=== PATIENT | male | born 1970 | race Caucasian/White ===

== ENCOUNTER 2017-08-23 19:32 | Emergency (ER) | payer OTHER ==
[2017-08-23] MEDS ORDERED: Tetan/Diph/Pertus SYR(Tdap)* 0.5 ML SYR(BOOSTRIX) use SYR IM ONE (19:39)
[2017-08-23] MEDS ORDERED: Lidocaine 2% PF * 5 ML VIAL INJ ONE (19:42)
[2017-08-23 19:45] VITALS: BP 133/90
--- NOTE | 2017-08-23 19:56 | UC ---
Laceration HPI - HPI Summary HPI Summary: Pt presents with laceration to left hand sustained 30min [employer] LO[employer]. He was using a utility knife to cut open a box and it slipped - sustained lac to left hand. Unsure date of last tetanus. He is right hand dominant. Bleeding stopped with direct pressure. - History Of Current Complaint Chief Complaint: UCLaceration Stated Complaint: HAND LACERATION Time Seen by Provider: 08/23/17 19:56 Hx Obtained From: Patient Laceration Location: Hand Mechanism Of Injury: Sharp Trauma Onset/Duration: Sudden Onset Severity: Mild Pain Intensity: 4 Pain Scale Used: 0-10 Numeric - Allergies/Home Medications Allergies/Adverse Reactions: Allergies Allergy/AdvReac Type Severity Reaction Status Date / Time No Known Allergies Allergy Verified 08/23/17 19:39 Home Medications: Home Medications NK [No Home Medications Reported] 08/23/17 [History Confirmed 08/23/17] PMH/Surg Hx/FS Hx/Imm Hx Previously Healthy: Yes - Surgical History Surgical History: None - Family History Known Family History: Positive: None - Social History Occupation: Employed Full-time Lives: With Family Alcohol Use: Weekly Substance Use Type: None Smoking Status (MU): Never Smoked Tobacco Review of Systems Constitutional: Negative Skin: Other - Lac to left hand Respiratory: Negative Cardiovascular: Negative Neurovascular: Negative Musculoskeletal: Negative Neurological: Negative Psychological: Negative All Other Systems Reviewed And Are Negative: Yes Physical Exam Triage Information Reviewed: Yes Appearance: Well-Appearing, No Pain Distress, Well-Nourished Vital Signs: Initial Vital Signs Temp 97.7 F 08/23/17 19:39 Pulse 91 08/23/17 19:39 Resp 18 08/23/17 19:39 BP 133/90 08/23/17 19:39 Pulse Ox 96 08/23/17 19:39 Vital Signs Reviewed: Yes Neck: Positive: Supple, No Lymphadenopathy Respiratory: Positive: Lungs clear, Normal breath sounds, No respiratory distress, No accessory muscle use Cardiovascular: Positive: RRR, No Murmur, Pulses Normal Musculoskeletal: Positive: Strength Intact - Left hand and all fingers, ROM Intact - Left hand and all fingers Neurological: Positive: Alert, Other: - Sensations intact left hand and all fingers Psychological: Positive: Age Appropriate Behavior Skin: Positive: Other - 2.5cm linear laceration to left palm with exposed subcu fat. No tendon involvement. No FB. Laceration Repair - Laceration Repair 1 Description: Linear Laceration Size After Repair: Length (cm) - 2.5 Modified For Repair: No Type Injection: Local Anesthesia Used: 2.0% Lido Cleansing Completed Via Routine Prep: Yes Irrigation With Pressure Irrigation Device: Yes Closure Material: Sutures Closure Method: Single Layer Suture Of: Skin Suture Type: Nylon Laceration Course/Dx - Course/Dx Course Of Treatment: A time out was performed, witnessed, and signed. The area was irrigated with 400mL sterile saline. 5mL of 2% lidocaine without epi was administered and good anesthetization was achieved. In the usual sterile fashion , SIX 5-0 and ONE 6-0 nylon sutures were placed. The wound was bandaged with telfa. Pt tolerated procedure well. - Differential Dx - Laceration/Wound Provider Diagnoses: 2.5cm laceration to left hand Discharge - Sign-Out/Discharge Documenting (check all that apply): Discharge - Discharge Plan Condition: Stable Disposition: HOME Patient Education Materials: Care For Your Stitches (ED), Laceration (ED) Referrals: No Primary Care Phys,NOPCP [Primary Care Provider] - Additional Instructions: 1) Please keep the area bandaged, clean, dry, and intact for the next 24- 48hours. 2) If you develop a fever, colored or thick discharge, increased pain or swelling - please call your PCP or go to the ED. 3) Please return in 10-12 days to have your SEVEN sutures removed. - Billing Disposition and Condition Condition: STABLE Disposition: HOME
== END 2017-08-23 20:51 | disposition home or self-care (01) ==
LOC: UCEAST 19:32
DX: S61.412A Laceration without foreign body of left hand, initial encounter (principal); W26.0XXA Contact with knife, initial encounter; Y93.89 Activity, other specified; Y92.9 Unspecified place or not applicable; Z23 Encounter for immunization
CPT/HCPCS: 12001; 12002; 90471; 90715; 99201; G0463

== ENCOUNTER 2017-09-07 20:06 | Emergency (ER) | payer OTHER ==
--- NOTE | 2017-09-07 20:11 | UC ---
Laceration HPI - HPI Summary HPI Summary: 47 y/o WM presents for suture removal. He had these seven sutures placed by me on 08/23. He has had no issues such as bleeding, drainage, or edema. - History Of Current Complaint Chief Complaint: UCSkin Stated Complaint: SUTURE REMOVAL Time Seen by Provider: 09/07/17 20:10 Hx Obtained From: Patient - Allergies/Home Medications Allergies/Adverse Reactions: Allergies Allergy/AdvReac Type Severity Reaction Status Date / Time No Known Allergies Allergy Verified 09/07/17 20:14 PMH/Surg Hx/FS Hx/Imm Hx Previously Healthy: Yes - Surgical History Surgical History: None - Family History Known Family History: Positive: None - Social History Occupation: Employed Full-time Lives: With Family Alcohol Use: Weekly Substance Use Type: None Smoking Status (MU): Never Smoked Tobacco Review of Systems Constitutional: Negative Skin: Other - Seven suture in place left palm Respiratory: Negative Cardiovascular: Negative Neurovascular: Negative Musculoskeletal: Negative Neurological: Negative Psychological: Negative All Other Systems Reviewed And Are Negative: Yes Physical Exam - Summary Physical Exam Summary: GENERAL: NAD. WDWN. No pain distress. SKIN: Well healed and approximated laceration to left palm. Seven sutures in place. No discharge, bleeding, or erythema. NECK: Supple. Nontender. No lymphadenopathy. CHEST: CTAB. No r/r/w. No accessory muscle use. Breathing comfortably and in no distress. CV: RRR. Without m/r/g. Pulses intact radial and ulnar. MSK: FROM left hand and all fingers. Strength 5/5 including forest fire fighter strength. NEURO: Alert. Sensations intact hand and all fingers. PSYCH: Age appropriate behavior. Triage Information Reviewed: Yes Laceration Course/Dx - Course/Dx Course Of Treatment: Uncomplicated removal of seven sutures. Pt tolerated well. - Differential Dx - Laceration/Wound Provider Diagnoses: Suture removal Discharge - Sign-Out/Discharge Documenting (check all that apply): Discharge - Discharge Plan Condition: Stable Disposition: HOME Patient Education Materials: Stitches Removal (ED) Referrals: No Primary Care Phys,NOPCP [Primary Care Provider] - Additional Instructions: If you develop a fever, shortness of breath, chest pain, new or worsening symptoms - please call your PCP or go to the ED. Your blood pressure was high at todays visit. Please see your primary provider within 4 weeks for recheck and re-evaluation. - Billing Disposition and Condition Condition: STABLE Disposition: HOME
[2017-09-07 20:14] VITALS: BP 155/109
== END 2017-09-07 20:25 | disposition home or self-care (01) ==
LOC: UCEAST 20:06
DX: S61.412D Laceration without foreign body of left hand, subsequent encounter (principal); X58.XXXD Exposure to other specified factors, subsequent encounter
CPT/HCPCS: 99211; G0463